=== PATIENT | male | born 1935 | race Caucasian/White ===

== ENCOUNTER → 2016-12-18 | Outpatient (CLI) | payer MEDICARE, OTHER ==
[2016-12-18 11:08] LABS: ANION GAP 10 (5-19); BLOOD UREA NITROGEN 22 mg/dL (7-20); CALCIUM 10.1 mg/dL (8.4-10.2); CARBON DIOXIDE 28 mmol/L (22-30); CHLORIDE 104 mmol/L (98-107); CHOLESTEROL 186.91 mg/dL (0-200); CREATININE RESULT 1.24 mg/dL (0.52-1.25); Direct HDL 53 mg/dL (>40); GLUCOSE 167 mg/dL (75-110); POTASSIUM 5.2 mmol/L (3.6-5.0); SODIUM 142.3 mmol/L (137-145); TRIGLYCERIDES 95 mg/dL (<150)
[2016-12-18 11:19] LABS: DIRECT LDL 100 mg/dL (<100)
== END ==
LOC: OD 09:07
PROVIDERS: ATTEND Internal Medicine Cardiovascular Disease
DX: I49.3 Ventricular premature depolarization (principal); I10 Essential (primary) hypertension; E11.65 Type 2 diabetes mellitus with hyperglycemia
CPT/HCPCS: 36415; 80048; 80061; 83036

== ENCOUNTER → 2017-02-16 | Outpatient (CLI) | payer MEDICARE, OTHER ==
[2017-02-16 09:35] LABS: ANION GAP 15 (5-19); BLOOD UREA NITROGEN 14 mg/dL (7-20); CALCIUM 9.4 mg/dL (8.4-10.2); CARBON DIOXIDE 25 mmol/L (22-30); CHLORIDE 105 mmol/L (98-107); CHOLESTEROL 170.91 mg/dL (0-200); CREATININE RESULT 1.16 mg/dL (0.52-1.25); Direct HDL 41 mg/dL (>40); GLUCOSE 164 mg/dL (75-110); POTASSIUM 4.4 mmol/L (3.6-5.0); TRIGLYCERIDES 110 mg/dL (<150)
[2017-02-16 09:54] LABS: DIRECT LDL 91 mg/dL (<100)
== END ==
LOC: OD 08:12
PROVIDERS: ATTEND Internal Medicine Cardiovascular Disease
DX: E11.65 Type 2 diabetes mellitus with hyperglycemia (principal); I10 Essential (primary) hypertension; I49.3 Ventricular premature depolarization
CPT/HCPCS: 36415; 80048; 80061; 83036

== ENCOUNTER → 2017-04-24 | Outpatient (CLI) | payer MEDICARE, OTHER ==
[2017-04-24 09:39] LABS: ANION GAP 15 (5-19); BLOOD UREA NITROGEN 22 mg/dL (7-20); CALCIUM 9.6 mg/dL (8.4-10.2); CARBON DIOXIDE 22 mmol/L (22-30); CHLORIDE 106 mmol/L (98-107); CHOLESTEROL 182.38 mg/dL (0-200); CREATININE RESULT 1.12 mg/dL (0.52-1.25); Direct HDL 55 mg/dL (>40); GLUCOSE 174 mg/dL (75-110); POTASSIUM 4.8 mmol/L (3.6-5.0); SODIUM 142.6 mmol/L (137-145); TRIGLYCERIDES 90 mg/dL (<150)
[2017-04-24 09:50] LABS: DIRECT LDL 102 mg/dL (<100)
== END ==
LOC: OD 08:15
PROVIDERS: ATTEND Internal Medicine Cardiovascular Disease
DX: E11.65 Type 2 diabetes mellitus with hyperglycemia (principal); I49.3 Ventricular premature depolarization
CPT/HCPCS: 36415; 80048; 80061; 83036

== ENCOUNTER 2017-08-06 10:10 | Emergency (ER) | payer OTHER, MEDICARE ==
--- NOTE | 2017-08-06 11:14 | RADIOLOGY REPORT (SQ) ---
EXAM DESCRIPTION: CHEST SINGLE VIEW COMPLETED DATE/TIME: 08/06/2017 11:06 am REASON FOR STUDY: sepsis COMPARISON: None. EXAM PARAMETERS: NUMBER OF VIEWS: One view. TECHNIQUE: Single frontal radiographic view of the chest acquired. RADIATION DOSE: NA LIMITATIONS: None. FINDINGS: LUNGS AND PLEURA: No opacities, masses or pneumothorax. No pleural effusion. MEDIASTINUM AND HILAR STRUCTURES: A hiatal hernia is present. HEART AND VASCULAR STRUCTURES: Heart normal in size. Normal vasculature. BONES: No acute findings. HARDWARE: None in the chest. OTHER: No other significant finding. IMPRESSION: Hiatal hernia with no acute cardiopulmonary disease. TECHNICAL DOCUMENTATION: JOB ID: [id number]
[2017-08-06 11:35] LABS: HEMATOCRIT 28.3 % (37.9-51.0); HEMOGLOBIN 9.8 g/dL (13.5-17.0); HGB HCT DIFFERENCE 1.1; MEAN CORPUSCULAR HEMOGLOBIN 34.2 pg (27.0-33.4); MEAN CORPUSCULAR HGB CONC 34.8 g/dL (32.0-36.0); MEAN CORPUSCULAR VOLUME 98 fl (80-97); PARTIAL THROMBOPLASTIN TIME 33.6 SEC (23.5-35.8); PROTHROMBIN TIME 15.4 SEC (11.4-15.4); RED BLOOD COUNT 2.88 10^6/uL (4.35-5.55); RED CELL DISTRIBUTION WIDTH 18.3 % (11.5-14.0); WHITE BLOOD COUNT 4.4 10^3/uL (4.0-10.5)
[2017-08-06 11:50] LABS: ALANINE AMINOTRANSFERASE 216 U/L (21-72); ALBUMIN 3.5 g/dL (3.5-5.0); ALKALINE PHOSPHATASE 944 U/L (38-126); ANION GAP 15 (5-19); ASPARTATE AMINO TRANSFERASE 172 U/L (17-59); BILIRUBIN,DIRECT 17.5 mg/dL (0.0-0.4); BILIRUBIN,TOTAL 19.7 mg/dL (0.2-1.3); BLOOD UREA NITROGEN 20 mg/dL (7-20); CARBON DIOXIDE 21 mmol/L (22-30); CHLORIDE 107 mmol/L (98-107); CREATININE RESULT 1.07 mg/dL (0.52-1.25); GLUCOSE 153 mg/dL (75-110); LIPASE 322.2 U/L (23-300); POTASSIUM 3.6 mmol/L (3.6-5.0); SODIUM 142.6 mmol/L (137-145); TOTAL PROTEIN 6.3 g/dL (6.3-8.2)
[2017-08-06 12:18] LABS: BASOPHILS % (MANUAL) 0 % (0-2); EOSINOPHILS % (MANUAL) 3 % (0-6); LYMPHOCYTES % (MANUAL) 32 % (13-45); TOTAL CELLS COUNTED 100
[2017-08-06 12:21] LABS: ANISOCYTOSIS 2+; TARGET CELLS SLIGHT; TOXIC GRANULATION SLIGHT
[2017-08-06] MEDS ORDERED: PANTOPRAZOLE SODIUM 40 MG VIAL IV ONE (12:40)
[2017-08-06] MEDS ORDERED: NORMAL SALINE 1000 ML 1,000 ML IV ONE ×2 (12:40→19:08)
--- NOTE | 2017-08-06 13:11 | RADIOLOGY REPORT (SQ) ---
EXAM DESCRIPTION: CT ABD/PELVIS WITH IV ONLY COMPLETED DATE/TIME: 08/06/2017 12:56 pm REASON FOR STUDY: Abdominal pain jaundice COMPARISON: None. TECHNIQUE: CT scan of the abdomen and pelvis performed using helical scanning technique with dynamic intravenous contrast injection. No oral contrast. Images reviewed with lung, soft tissue, and bone windows. Reconstructed coronal and sagittal MPR images reviewed. Delayed images for evaluation of the urinary system also acquired. All images stored on PACS. All CT scanners at this facility use dose modulation, iterative reconstruction, and/or weight based d osing when appropriate to reduce radiation dose to as low as reasonably achievable (ALARA). [facility]: Dose Right [facility]: CareDose [facility]: Dose Right [facility]: Teradose 4D [facility]: [employer] CONTRAST TYPE AND DOSE: contrast/concentration: Isovue 370.00 mg/ml; Total Contrast Delivered: 71.0 ml; Total Saline Delivered: 66.0 ml RENAL FUNCTION: Creatinine 1.07 RADIATION DOSE: Up-to-date CT equipment and radiation dose reduction techniques were employed. CTDIv ol: NaN - NaN mGy. DLP: 0 mGy-cm.. LIMITATIONS: None. FINDINGS: LOWER CHEST: No significant finding in the lungs. Large hiatal hernia. LIVER: No focal masses. Marked intrahepatic ductal dilatation. Marked dilatation of the common bile duct to 2.2 cm. SPLEEN: Splenomegaly. PANCREAS: There are no masses identified. Dilatation of the pancreatic duct. GALLBLADDER: No identified stones by CT criteria. No inflammatory changes to suggest cholecystitis. Distended. ADRENAL GLANDS: No significant masses or asymmetry. RIGHT KIDNEY AND URETER: Cyst. No significant calcifications. No hydronephrosis or hydroureter. LEFT KIDNEY AND URETER: No solid masses. No significant calcifications. No hydronephrosis or hydr oureter. AORTA AND VESSELS: No aneurysm. No dissection. Renal arteries, SMA, celiac without stenosis. RETROPERITONEUM: No retroperitoneal adenopathy, hemorrhage or masses. BOWEL AND PERITONEAL CAVITY: No masses or inflammatory changes. No free fluid or peritoneal masses.Di verticulosis. No diverticulitis. APPENDIX: Not visualized. PELVIS: Enlarged prostate. ABDOMINAL WALL: No masses. No hernias. BONES: No significant or acute findings. OTHER: No other significant finding. IMPRESSION: Marked dilatation of the intra and extra hepatic biliary tree and distention of the gall bladder. Dilated pancreatic duct. No visualized masses. Question stricture. Diverticulosis without diverticulitis. TECHNICAL DOCUMENTATION: JOB ID: [id number] Quality ID # [id number]: Final reports with documentation of one or more dose reduction techniques (e.g., Au tomated exposure control, adjustment of the mA and/or kV according to patient size, use of iterative reconstruction technique) 2010 [employer]- All Rights Reserved
--- NOTE | 2017-08-06 13:24 | EKG REPORT ---
SEVERITY:- NORMAL ECG - SINUS RHYTHM : Confirmed by: Leobardo Roper MD 06-Aug-2017 13:23:23
[2017-08-06 14:19] LABS: APPEARANCE,URINE CLOUDY; BILIRUBIN,URINE MODERATE (NEGATIVE); GLUCOSE, URINE NEGATIVE (NEGATIVE); KETONES,URINE NEGATIVE (NEGATIVE); LEUKOCYTE ESTERASE,URINE NEGATIVE (NEGATIVE); NITRITE,URINE NEGATIVE (NEGATIVE); PROTEIN,URINE 30 mg/dL (NEGATIVE)
--- NOTE | 2017-08-06 14:32 | ER Document Report ---
ED General - General Chief Complaint: Abdominal Pain Stated Complaint: ABDOMINAL PAIN Time Seen by Provider: 08/06/17 10:25 TRAVEL OUTSIDE OF THE [place] IN LAST 30 DAYS: No - HPI Patient complains to provider of: Jaundice abdominal pain Notes: Patient coming in for evaluation of jaundice and abdominal pain states ongoing for greater than 1 week. Patient states was seen at the [facility] and told to come to the ER for further evaluation. States the [facility] told and his liver enzymes are elevated. Patient otherwise complains of diffuse abdominal pain and nausea vomiting diarrhea no changes in medication no excessive Tylenol use no alcohol use. Upon my evaluation patient is bright yellow. - Related Data Allergies/Adverse Reactions: No Known Allergies Allergy (Verified 08/06/17 11:26) Home Medications: Current Home Medications Citalopram Hydrobromide [Citalopram HBr] 20 mg PO DAILY 08/06/17 [History] Metformin HCl [Metformin HCl] 1 tab PO DAILY 08/06/17 [History] Tamsulosin HCl [Tamsulosin HCl] 1 tab PO DAILY 08/06/17 [History] Past Medical History - Social History Smoking Status: Never Smoker Chew tobacco use (# tins/day): No Frequency of alcohol use: None Drug Abuse: None Family History: Reviewed & Not Pertinent Patient has suicidal ideation: No Patient has homicidal ideation: No - Past Medical History Cardiac Medical History: Reports: Hx Hypertension - MEDICATED Denies: Hx Heart Attack Pulmonary Medical History: Denies: Hx Asthma Neurological Medical History: Denies: Hx Cerebrovascular Accident, Hx Seizures Endocrine Medical History: Reports: Hx Diabetes Mellitus Type 2 Renal/ Medical History: Denies: Hx Peritoneal Dialysis GI Medical History: Reports: Hx Hiatal Hernia. Denies: Hx Hepatitis, Hx Ulcer Musculoskeltal Medical History: Reports Hx Arthritis Infectious Medical History: Denies: Hx Hepatitis Past Surgical History: Denies: Hx Open Heart Surgery, Hx Pacemaker Review of Systems - Review of Systems Constitutional: No symptoms reported EENT: No symptoms reported Cardiovascular: No symptoms reported Respiratory: No symptoms reported Gastrointestinal: Abdominal pain Genitourinary: No symptoms reported Male Genitourinary: No symptoms reported Musculoskeletal: No symptoms reported Skin: No symptoms reported Hematologic/Lymphatic: No symptoms reported Neurological/Psychological: No symptoms reported -: Yes All other systems reviewed and negative Physical Exam - Vital signs Vitals: Temp Pulse Resp BP Pulse Ox 97.7 F 70 20 126/59 H 95 08/06/17 10:22 08/06/17 10:22 08/06/17 10:22 08/06/17 10:22 08/06/17 10:22 Interpretation: Normal - General General appearance: Appears well, Alert - HEENT Head: Normocephalic, Atraumatic Conjunctiva: Icteric Cornea: Normal Extraocular movements intact: Yes Eyelashes: Normal Pupils: PERRL - Respiratory Respiratory status: No respiratory distress Chest status: Nontender Breath sounds: Normal Chest palpation: Normal - Cardiovascular Rhythm: Regular Heart sounds: Normal auscultation Murmur: No - Abdominal Inspection: Normal Distension: No distension Bowel sounds: Normal Tenderness: Tender - Diffuse tenderness mild palpation no rebound or guarding. No: McBurney's point, Mckeon's sign Organomegaly: No organomegaly - Back Back: Normal, Nontender - Extremities General upper extremity: Normal inspection, Nontender, Normal color, Normal ROM , Normal temperature General lower extremity: Normal inspection, Nontender, Normal color, Normal ROM , Normal temperature, Normal weight bearing. No: Manjit's sign - Neurological Neuro grossly intact: Yes Cognition: Normal Orientation: AAOx4 [place] Coma Scale Eye Opening: Spontaneous [place] Coma Scale Verbal: Oriented [place] Coma Scale Motor: Obeys Commands [place] Coma Scale Total: 15 Speech: Normal Motor strength normal: LUE, RUE, LLE, RLE Sensory: Normal - Psychological Associated symptoms: Normal affect, Normal mood - Skin Skin Temperature: Warm Skin Moisture: Dry Skin Color: Jaundiced Course - Re-evaluation Re-evalutation: 08/06/17 14:[address] Gay at this time. 08/06/17 16:48 Notified by [facility] more likely patient is going to have greater than 12 hour weight. Patient otherwise remained stable. Offered transfer to another facility patient states he would rather remain right here at this time. 08/06/17 18:05 Patient coming in for jaundice. CT scan shows no signs of infection correlated with patient's history no fever and no white count. Does show signs of biliary obstruction possible stricture. There is a delay in getting patient's ultrasound. Patient case was discussed with physicians at [facility] expected a long transfer time this was relayed to the patient multiple times stated that they would like to stay here as well as also my recommendation to be transferred locally. Otherwise patient will be placed on a full liquid diet patient does have blood in stool otherwise hemoglobin looks to be stable at this time will continue with twice daily Protonix. - Vital Signs Vital signs: Temp Pulse Resp BP Pulse Ox 97.7 F 70 22 H 120/57 L 99 08/06/17 10:22 08/06/17 10:22 08/06/17 16:01 08/06/17 16:01 08/06/17 16:01 - Laboratory Result Diagrams: 08/06/17 11:08 08/06/17 11:08 Laboratory results interpreted by me: 08/06/17 08/06/17 08/06/17 11:08 11:08 12:23 RBC 2.88 L Hgb 9.8 L Hct 28.3 L MCV 98 H MCH 34.2 H RDW 18.3 H VBG pH Carbon Dioxide 21 L Glucose 153 H Total Bilirubin 19.7 H Direct Bilirubin 17.5 H AST 172 H ALT 216 H Alkaline Phosphatase 944 H Lipase 322.2 H Urine Protein 30 H Urine Blood SMALL H Urine Bilirubin MODERATE H Urine Urobilinogen 4.0 H 08/06/17 15:58 RBC Hgb Hct MCV MCH RDW VBG pH 7.29 L Carbon Dioxide Glucose Total Bilirubin Direct Bilirubin AST ALT Alkaline Phosphatase Lipase Urine Protein Urine Blood Urine Bilirubin Urine Urobilinogen Discharge - Discharge Clinical Impression: Jaundice, Biliary obstruction GI bleed Qualifiers: GI bleed type/associated pathology: unspecified gastrointestinal hemorrhage type Qualified Code(s): K92.2 - Gastrointestinal hemorrhage, unspecified Condition: Good Disposition: [facility]
[2017-08-06 16:10] LABS: VENOUS BLOOD BASE EXCESS -3.3 mmol/L; VENOUS BLOOD HCO3 23.9 mmol/L (20-32); VENOUS BLOOD PCO2 50.8 mmHg (35-63); VENOUS BLOOD PH 7.29 (7.30-7.42)
[2017-08-06] MEDS ORDERED: PANTOPRAZOLE SODIUM 40 MG VIAL IV SCH (18:00)
--- NOTE | 2017-08-06 18:43 | RADIOLOGY REPORT (SQ) ---
EXAM DESCRIPTION: U/S ABDOMEN LTD W/DOPPLER COMPLETED DATE/TIME: 08/06/2017 6:21 pm REASON FOR STUDY: ruq pain jaundice COMPARISON: None. TECHNIQUE: Dynamic and static grayscale images acquired of the abdomen and recorded on PACS. Amadoo sarita selected color Doppler and spectral images recorded. LIMITATIONS: None. FINDINGS: PANCREAS: Not well seen. LIVER: 16 cm. Normal echotexture. Dilated intrahepatic ducts. LIVER VASCULATURE: Normal directional flow of the main portal vein and hepatic veins. GALLBLADDER: Gallstones. Thickening of the gallbladder wall with edema within the wall. ULTRASOUND-DETECTED HERRING'S SIGN: Negative. INTRAHEPATIC DUCTS AND COMMON DUCT: Common bile duct measures 1.7 cm. Intrahepatic ducts are dilated . INFERIOR VENA CAVA: Normal flow. AORTA: No aneurysm. RIGHT KIDNEY: Normal size, 9.7 cm. Normal echogenicity. No solid or suspicious masses. There is a 2 .9 cm cyst in the upper pole. No hydronephrosis. No calcifications. PERITONEAL AND RIGHT PLEURAL SPACE: No ascites or effusions. OTHER: No other significant findings. IMPRESSION: 1. Dilated biliary system. 2. Cholelithiasis with thickening of the gallbladder wall concerning for cholecystitis. TECHNICAL DOCUMENTATION: JOB ID: [id number] [email or web address]- All Rights Reserved
[2017-08-06] MEDS ORDERED: PIPERACILLIN/TAZOBACTAM 3.375 GM VIAL IV SCH (19:15)
[2017-08-06] MEDS ORDERED: ERTAPENEM SODIUM INJ 1 GM VIAL IV ONE (20:26)
[2017-08-06 20:46] LABS: HEMATOCRIT 25.5 % (37.9-51.0); HGB HCT DIFFERENCE 1.5; MEAN CORPUSCULAR HEMOGLOBIN 34.5 pg (27.0-33.4); MEAN CORPUSCULAR HGB CONC 35.3 g/dL (32.0-36.0); MEAN CORPUSCULAR VOLUME 98 fl (80-97); RED BLOOD COUNT 2.61 10^6/uL (4.35-5.55); RED CELL DISTRIBUTION WIDTH 18.3 % (11.5-14.0); WHITE BLOOD COUNT 3.8 10^3/uL (4.0-10.5)
[2017-08-06] MEDS ORDERED: NORMAL SALINE 1000 ML 1,000 ML IV PRN (22:16)
[2017-08-06] MEDS ORDERED: POTASSI CL 40 MEQ/D5-1/2NS 1L 40 MEQ/1,000 ML RTUINJ IV ONE (22:19)
[2017-08-07 00:10] LABS: MEAN CORPUSCULAR HEMOGLOBIN 34.4 pg (27.0-33.4); MEAN CORPUSCULAR HGB CONC 34.8 g/dL (32.0-36.0); MEAN CORPUSCULAR VOLUME 99 fl (80-97); RED BLOOD COUNT 2.33 10^6/uL (4.35-5.55); WHITE BLOOD COUNT 3.5 10^3/uL (4.0-10.5)
[2017-08-07 04:07] LABS: HEMATOCRIT 22.9 % (37.9-51.0); HGB HCT DIFFERENCE 1.1; MEAN CORPUSCULAR HEMOGLOBIN 34.6 pg (27.0-33.4); MEAN CORPUSCULAR VOLUME 99 fl (80-97); RED BLOOD COUNT 2.31 10^6/uL (4.35-5.55); RED CELL DISTRIBUTION WIDTH 18.1 % (11.5-14.0); WHITE BLOOD COUNT 3.5 10^3/uL (4.0-10.5)
[2017-08-07 04:16] LABS: ALANINE AMINOTRANSFERASE 154 U/L (21-72); ALBUMIN 2.4 g/dL (3.5-5.0); ALKALINE PHOSPHATASE 706 U/L (38-126); ANION GAP 9 (5-19); ASPARTATE AMINO TRANSFERASE 118 U/L (17-59); BILIRUBIN,DIRECT 13.5 mg/dL (0.0-0.4); BLOOD UREA NITROGEN 16 mg/dL (7-20); CALCIUM 7.9 mg/dL (8.4-10.2); CARBON DIOXIDE 20 mmol/L (22-30); CHLORIDE 114 mmol/L (98-107); CREATININE RESULT 1.13 mg/dL (0.52-1.25); GLUCOSE 126 mg/dL (75-110); LIPASE 145.1 U/L (23-300); POTASSIUM 3.8 mmol/L (3.6-5.0); SODIUM 142.5 mmol/L (137-145); TOTAL PROTEIN 4.6 g/dL (6.3-8.2)
[2017-08-07 04:29] LABS: BILIRUBIN,TOTAL 15.2 mg/dL (0.2-1.3)
[2017-08-07 04:32] LABS: BAND NEUTROPHILS % (MANUAL) 3 % (3-5); BASOPHILS % (MANUAL) 0 % (0-2); EOSINOPHILS % (MANUAL) 7 % (0-6); LYMPHOCYTES % (MANUAL) 41 % (13-45); NUCLEATED RED BLOOD CELLS 1 /100 WBC (0); TOTAL CELLS COUNTED 100
[2017-08-07 04:35] LABS: ANISOCYTOSIS 2+; TOXIC GRANULATION SLIGHT
[2017-08-07 04:36] LABS: POLYCHROMASIA SLIGHT; ROULEAUX SLIGHT; SCHISTOCYTES SLIGHT
[2017-08-07] MEDS ORDERED: RINGERS SOLUTION,LACTATED 1,000 ML IV ONE (06:52)
[2017-08-07] MEDS ORDERED: NORMAL SALINE 250 ML IV PRN (06:56)
[2017-08-07] MEDS ORDERED: ERTAPENEM SODIUM INJ 1 GM VIAL IV ONE (09:58)
[2017-08-07 11:46] VITALS: BP 98/45
== END 2017-08-07 11:54 | disposition short-term general hospital (02) ==
LOC: ER 10:10
DX: K92.2 Gastrointestinal hemorrhage, unspecified (principal); K83.1 Obstruction of bile duct; R17 Unspecified jaundice; R10.9 Unspecified abdominal pain; R11.2 Nausea with vomiting, unspecified; R19.7 Diarrhea, unspecified; Z79.899 Other long term (current) drug therapy
CPT/HCPCS: 93005; 96376; 99285; 96361; 96375; 96365; 96366; 96367; 86900; 86901; 36415; 87040; 87086; 36430; 86850; 82962; 82140; 83605 ×2; 83690; 85025; 85027; 85610; 85730; 82272; 80053; 81001; 86920; 82803; 71010; 76705; 93976; 74177; 93010; P9016; J3480; J1335 ×2; S0164; J7030 ×2; J7120